=== PATIENT | male | born 1960 | race Caucasian/White ===

== ENCOUNTER 2017-08-01 16:19 | Emergency (ER) | payer OTHER ==
[~2017-08-01] VITALS: Ht 193 cm; Wt 110.8 kg
[~2017-08-01 16:19] MED LIST: ALBUAER2 INH; GABA600T PO; LORA-741 PO; MTR600 PO; OXYC1TAB3 PO; [UNRECOGNIZED DRUG - CODE] PO
[2017-08-01 16:24] VITALS: TEMP 36.8; Ht 193 cm; Wt 110.8 kg
[2017-08-01] MEDS ORDERED: MoRPHine SULFATE 10 MG/ML CARP/VIAL IV STA (16:43)
[2017-08-01] MEDS ORDERED: METHYLPREDNISOLONE 125 MG VIAL IV STA (16:43)
[2017-08-01] MEDS ORDERED: LORAZEPAM 0.5 MG TAB SL STA (17:18)
[2017-08-01] MEDS ORDERED: ONDANSETRON INJ 2 MG/ML 2 ML VIAL IV STA (17:18)
[2017-08-01 17:22] LABS: BASO % 0.4 %; BASO ABS # 0.03 K/uL (0-0.2); COMPLETE YES; EOS % 1.1 %; HEMATOCRIT 45.4 % (42-52); IG% 0.1 %; LYMPH % 34.4 %; LYMPH ABS # 2.71 K/uL (1.2-3.4); MEAN CELL VOLUME 97.8 fL (80-100); MEAN CORPUSCULAR HEMOGLOBIN 34.3 pg (25-34); MEAN PLATELET VOLUME 9.7 fL (7.4-10.4); MONO % 6.3 %; NEUT % 57.7 %; PLATELET COUNT 175 K/uL (130-400); RED BLOOD COUNT 4.64 M/uL (4.7-6.1); WHITE BLOOD COUNT 7.88 K/uL (4.8-10.8)
[2017-08-01 17:41] LABS: BUN/CREATININE RATIO 10.9 (10-20); CALCIUM 8.6 mg/dl (8.5-10.1); CREATININE 1.04 mg/dl (0.60-1.40); POTASSIUM 4.2 mmol/L (3.5-5.1)
--- NOTE | 2017-08-01 19:11 | DIAGNOSTIC IMAGING REPORT ---
MRI OF THE LUMBAR SPINE WITHOUT CONTRAST CLINICAL HISTORY: Low back and bilateral lower extremity pain. Left lower extremity weakness. Previous back surgery. COMPARISON STUDY: Lumbar spine fluoroscopic images August 16, 2011. TECHNIQUE: Utilizing a 1.5 Mechelle magnet and dedicated coil, multiplanar, multiecho imaging of the lumbar spine was performed without IV contrast. FINDINGS: For purposes of numbering on this exam, the L5-S1 disc space is assigned to axial image 2529. There is a 8 mm of anterolisthesis of L4 and L5. There is a posterior decompression with bilateral pedicle screw fusion at the L4 and L5 levels. There is evidence for a L5-S1 discectomy and interbody spacer placement. No intracanalicular mass or fluid collection is present. Conus terminates at the upper L1 level. Paravertebral soft tissues are unremarkable. Mild loss of height of the superior plate of T12 suggests an old mild compression deformity. Note is made of irregularity with mild loss of height of the inferior endplate of L4 and superior endplate of L5 which is chronic. L1-2: The central canal and neural foramen are patent. L2-3: The central canal and neural foramen are patent. L3-4: Central canal is patent. The neural foramen are also patent. L4-5: There is grade I anterolisthesis with uncovering of the disc. The central canal is patent. There is moderate to severe bilateral neural foraminal stenosis which is suboptimally assessed due to susceptibility artifact from the hardware. L5-S1: Central canal and neural foramen are patent. IMPRESSION: 1. Status post L4-L5 posterior decompression bilateral pedicle screw fusion. Grade I anterolisthesis of L4 and L5 with irregularity and mild loss of height of the inferior endplate of L4 and superior endplate of L5 which is likely chronic. 2. Status post L5-S1 discectomy. 3. Old mild T12 superior endplate compression deformity. 4. Patent central canal. 5. Moderate to severe bilateral neural foraminal stenosis at L4-L5, as detailed above. Electronically signed by: Rico Chong M.D. 08/01/2017 7:09 PM Dictated Date/Time: 08/01/2017 7:01 PM
[2017-08-01] MEDS ORDERED: PRED50TA PO (19:48)
[2017-08-01 19:55] VITALS: BP 139/74; PULSE 69; O2SAT 97
--- NOTE | 2017-08-01 23:24 | EMERGENCY ROOM VISIT NOTE ---
History Report prepared by Armen: Allyssa Green Under the Supervision of: Dr. Jackson Cunningham D.O. First contact with patient: 16:27 Chief Complaint: BACK PAIN Stated Complaint: LOWER BACK. LEFT LEG AND RT LEG PAIN History of Present Illness The patient is a 56 year old male who presents to the Emergency Room with complaints of constant lower back pain beginning 1 week ago. The patient states that he has a history of back pain and always has pain on the lower right side. He reports that he has had 3 bad fusions and has had multiple falls in the last few years. He notes that 1 week ago he picked up a box of turkey and twisted the wrong way. Since the episode, the patient states that his pain is now in his left leg while it is usually the right leg that has issues with his back pain. The patient complains of slow urination and tense muscles. He notes that he is on Baclofen, Doxepin and Xanax for depression and anxiety. He denies any fever, groin numbness, IV drug use, leg weakness, recent trauma, cancer history , cough, runny nose, and shortness of breath. The patient notes that he has been able to walk with 2 canes and has been taking ibuprofen for his pain. The patient reports that his pain is worsened with movement. Source of History: patient Onset: 1 week ago Position: back (lower) Timing: constant Modifying Factors (Worsening): movement Associated Symptoms: No fevers, No cough, No SOB, No weakness Note: The patient complains of slow urination and tense muscles. He denies any groin numbness, IV drug use, recent trauma, cancer history, runny nose. Review of Systems See HPI for pertinent positives & negatives. A total of 10 systems reviewed and were otherwise negative. Past Medical & Surgical Medical Problems: (1) Asthma (2) Disc displacement, lumbar (3) Hypertension (4) Spinal stenosis, lumbar (5) Spondylolisthesis Family History Cancer Gallbladder disease Heart disease Social History Smoking Status: Current Every Day Smoker Marital Status: single Housing Status: lives alone Current/Historical Medications Scheduled Albuterol (Ventolin Hfa), 1-2 PUFF INH Q6HR PRN Gabapentin (Neurontin), 600 MG PO TID Hydrocodone Bitartrate (Zohydro ER), 40 MG PO BID Lorazepam (Ativan), 0.5 MG PO BID Prednisone (Prednisone), 50 MG PO DAILY Scheduled PRN Ibuprofen (Ibuprofen), 600 MG PO Q6 PRN for Pain Oxycodone Immediate Rel Tab (Roxicodone Ir), 10 MG PO Q4H PRN for Severe Pain Allergies Coded Allergies: Celecoxib (Verified Allergy, Unknown, RESPIRATORY DISTRESS, THROAT SWELLING, 01/02/16) PT HAS RECEIVED TORADOL WITHOUT A REACTION Cephalexin (Verified Allergy, Unknown, RASH, 01/02/16) Meperidine (Verified Allergy, Unknown, ITCHINESS, 01/02/16) Nickel (Verified Allergy, Unknown, "LIVER/KIDNEY SHUTDOWN", 01/02/16) Rofecoxib (Verified Allergy, Unknown, THROAT SWELLING, RESPIRATORY DISTRESS, 01/02/16) PT HAS RECEIVED TORADOL WITHOUT A REACTION Physical Exam Vital Signs Date Time Temp Pulse Resp B/P (MAP) Pulse Ox O2 Delivery O2 Flow Rate FiO2 08/01/17 19:55 69 18 139/74 97 Room Air 08/01/17 19:06 65 16 139/74 95 Room Air 08/01/17 18:14 69 18 127/91 95 Room Air 08/01/17 16:24 36.8 85 18 189/82 95 Room Air Physical Exam GENERAL: Sitting up in bed, in moderate distress, holding right leg EYE EXAM: normal conjunctiva. OROPHARYNX: no exudate, no erythema, lips, buccal mucosa, and tongue normal and mucous membranes are moist NECK: supple, no nuchal rigidity, no adenopathy, non-tender LUNGS: Clear to auscultation. Normal chest wall mechanics HEART: no murmurs, S1 normal and S2 normal ABDOMEN: abdomen soft, non-tender, normo-active bowel sounds, no masses, no rebound or guarding. BACK: Back is symmetrical on inspection and there is no deformity, no midline tenderness. Old midline incision in lower lumbar region with tenderness in bilateral paraspinal region tracking into gluteus. SKIN: no rashes and no bruising UPPER EXTREMITIES: upper extremities are grossly normal. LOWER EXTREMITIES: No pitting edema. Flexion/extension of hip, knee, ankle, and EHL 5/5 bilaterally, decreased sensation on right leg (old per patient). Patellar reflexes bilaterally. Able to hold thighs off of ground for 5 seconds bilaterally. NEURO EXAM: Normal sensorium Medical Decision & Procedures ER Provider Diagnostic Interpretation: Radiology results as stated below per my review and the radiologist's interpretation: MRI OF THE LUMBAR SPINE WITHOUT CONTRAST FINDINGS: For purposes of numbering on this exam, the L5-S1 disc space is assigned to axial image 2529. There is a 8 mm of anterolisthesis of L4 and L5. There is a posterior decompression with bilateral pedicle screw fusion at the L4 and L5 levels. There is evidence for a L5-S1 discectomy and interbody spacer placement. No intracanalicular mass or fluid collection is present. Conus terminates at the upper L1 level. Paravertebral soft tissues are unremarkable. Mild loss of height of the superior plate of T12 suggests an old mild compression deformity. Note is made of irregularity with mild loss of height of the inferior endplate of L4 and superior endplate of L5 which is chronic. L1-2: The central canal and neural foramen are patent. L2-3: The central canal and neural foramen are patent. L3-4: Central canal is patent. The neural foramen are also patent. L4-5: There is grade I anterolisthesis with uncovering of the disc. The central canal is patent. There is moderate to severe bilateral neural foraminal stenosis which is suboptimally assessed due to susceptibility artifact from the hardware. L5-S1: Central canal and neural foramen are patent. IMPRESSION: 1. Status post L4-L5 posterior decompression bilateral pedicle screw fusion. Grade I anterolisthesis of L4 and L5 with irregularity and mild loss of height of the inferior endplate of L4 and superior endplate of L5 which is likely chronic. 2. Status post L5-S1 discectomy. 3. Old mild T12 superior endplate compression deformity. 4. Patent central canal. 5. Moderate to severe bilateral neural foraminal stenosis at L4-L5, as detailed above. Electronically signed by: Rico Chong M.D. 08/01/2017 7:09 PM Dictated Date/Time: 08/01/2017 7:01 PM Laboratory Results 08/01/17 17:03 Red Blood Count 4.64, Mean Corpuscular Volume 97.8, Mean Corpuscular Hemoglobin 34.3, Mean Corpuscular Hemoglobin Concent 35.0, Mean Platelet Volume 9.7, Neutrophils (%) (Auto) 57.7, Lymphocytes (%) (Auto) 34.4, Monocytes (%) (Auto) 6.3, Eosinophils (%) (Auto) 1.1, Basophils (%) (Auto) 0.4, Neutrophils # (Auto) 4.54, Lymphocytes # (Auto) 2.71, Monocytes # (Auto) 0.50, Eosinophils # (Auto) 0.09, Basophils # (Auto) 0.03 08/01/17 17:03 Test 08/01/17 17:03 White Blood Count 7.88 K/uL (4.8-10.8) Red Blood Count 4.64 M/uL (4.7-6.1) Hemoglobin 15.9 g/dL (14.0-18.0) Hematocrit 45.4 % (42-52) Mean Corpuscular Volume 97.8 fL (80-100) Mean Corpuscular Hemoglobin 34.3 pg (25-34) Mean Corpuscular Hemoglobin Concent 35.0 g/dl (32-36) Platelet Count 175 K/uL (130-400) Mean Platelet Volume 9.7 fL (7.4-10.4) Neutrophils (%) (Auto) 57.7 % Lymphocytes (%) (Auto) 34.4 % Monocytes (%) (Auto) 6.3 % Eosinophils (%) (Auto) 1.1 % Basophils (%) (Auto) 0.4 % Neutrophils # (Auto) 4.54 K/uL (1.4-6.5) Lymphocytes # (Auto) 2.71 K/uL (1.2-3.4) Monocytes # (Auto) 0.50 K/uL (0.11-0.59) Eosinophils # (Auto) 0.09 K/uL (0-0.5) Basophils # (Auto) 0.03 K/uL (0-0.2) RDW Standard Deviation 46.1 fL (36.4-46.3) RDW Coefficient of Variation 12.9 % (11.5-14.5) Immature Granulocyte % (Auto) 0.1 % Immature Granulocyte # (Auto) 0.01 K/uL (0.00-0.02) Anion Gap 8.0 mmol/L (3-11) Est Creatinine Clear Calc Drug Dose 108.1 ml/min Estimated GFR () 92.6 Estimated GFR (Non- 79.9 BUN/Creatinine Ratio 10.9 (10-20) Calcium Level 8.6 mg/dl (8.5-10.1) Chemistry Specimen Hemolysis Laboratory results per my review. Medications Administered Medications (Trade) Dose Ordered Sig/Lorena Route Start Time Stop Time Status Last Admin Dose Admin Morphine Sulfate (MoRPHine SULFATE INJ) 6 mg NOW STAT IV 08/01/17 16:43 08/01/17 16:45 DC 08/01/17 17:12 6 MG Methylprednisolone Sodium Succinate (Solu-Medrol IV) 125 mg NOW STAT IV 08/01/17 16:43 08/01/17 16:46 DC 08/01/17 17:12 125 MG Ondansetron HCl (Zofran Inj) 4 mg NOW STAT IV 08/01/17 17:18 08/01/17 17:19 DC 08/01/17 18:12 4 MG Lorazepam (Ativan Tab) 0.5 mg NOW STAT SL 08/01/17 17:18 08/01/17 17:19 DC 08/01/17 18:12 0.5 MG ED Course ED COURSE: Vital signs were reviewed and showed hypertension The patients medical record was reviewed The above diagnostic studies were performed and reviewed. ED treatments and interventions as stated above. 1627: The patient was evaluated in room C3. A complete history and physical examination was performed. 1643: Solu-Medrol IV 125mg IV, Morphine Sulfate 6mg IV. 1716: I reevaluated the patient. Both family members are sick at home with the same thing. 1718: Ativan Tab 0.5mg SL, Zofran Inj 4mg IV. 1: Upon reevaluation, the patient is doing well.I discussed my findings with the patient and he understands and agrees with the treatment plan. Based on the patients age, coexisting illnesses, exam and lab findings the decision to treat as an outpatient was made. The patient remained stable while under my care. The patient appeared well at the time of discharge. Medical Decision Differential diagnosis: Etiologies such as musculoskeletal, disc herniation, fracture, aortic disease, metastatic disease, cord compression, discitis, infection, renal colic, gastrointestinal, acute exacerbation of chronic back pain, sciatica, cauda equina, as well as others were entertained. Patient is a 56-year-old male who presents to the ER following 3 back surgeries. Patient was moving turkeys on with twisting and turning. Following this had severe pain. Left leg has been having shooting pain which she initially described this weakness but notes that it is not weak. Last bowel movement was this a.m. Able to urinate. Afebrile. No history cancer. No recent intervention. CBC and BMP was unremarkable. MRI shows no acute pathology. Patient was updated in regards to his findings. He was given IV morphine and oral Ativan for MRI. He was discharged to follow-up with PCP/ spinal surgery with steroids. Discussed with Pt concerning signs and symptoms to watch out for. Pt was instructed to follow up with their PCP and discussed with the patient their option to return to the ED at anytime for persistent or worsening symptoms. The appropriate anticipatory guidance and out-patient management, including indications for return to the emergency department, were explained at length to the patient and understood. Medication Reconcilliation Current Medication List: was personally reviewed by me Blood Pressure Screening Patient's blood pressure: Elevated blood pressure Blood pressure disposition: Elevated BP felt to be situational Impression Primary Impression: Back pain Scribe Attestation The scribe's documentation has been prepared under my direction and personally reviewed by me in its entirety. I confirm that the note above accurately reflects all work, treatment, procedures, and medical decision making performed by me. Departure Information Dispostion Home / Self-Care Prescriptions Prednisone (PREDNISONE) 50 Mg Tab 50 MG PO DAILY for 5 Days, #5 TAB Prov: Jackson Cunningham, DO 08/01/17 Referrals No Doctor, Assigned (PCP) Forms HOME CARE DOCUMENTATION FORM, IMPORTANT VISIT INFORMATION Patient Instructions Back Pain - [facility], [facility] Additional Instructions Please follow up with your primary care doctor or if you are a student, [facility] with in the next 24 hours. Any worsening of your symptoms, please return to the ED immediately. This includes any fevers greater than 100.4, worsening pain, chest pain, shortness breath, persistent nausea, vomiting, unable to eat or drink, unable to urinate, unable to move her bowels, or any other concerning signs or symptoms from your standpoint. You were given medications during this visit that will inhibit your ability to drive, operate machinery and work. Please do NOT drive, operate machinery, drink alcohol or work for the next 12hrs. Please take steroids as prescribed. Problem Qualifiers Primary Impression: Back pain Back pain location: back pain in unspecified location Chronicity: unspecified Back pain laterality: unspecified Qualified Codes: M54.9 - Dorsalgia, unspecified
== END 2017-08-01 20:05 | disposition home or self-care (01) ==
LOC: C.EDB 16:20 → C.EDC 20:05
DX: M54.5 Low back pain (principal); M51.26 Other intervertebral disc displacement, lumbar region; M48.061 Spinal stenosis, lumbar region without neurogenic claudication; M43.10 Spondylolisthesis, site unspecified; J45.909 Unspecified asthma, uncomplicated; F17.200 Nicotine dependence, unspecified, uncomplicated; R03.0 Elevated blood-pressure reading, without diagnosis of hypertension; Z83.79 Family history of other diseases of the digestive system; Z82.49 Family history of ischemic heart disease and other diseases of the circulatory system; Z79.891 Long term (current) use of opiate analgesic; Z79.52 Long term (current) use of systemic steroids